=== PATIENT | male | born 1965 | race Caucasian/White ===

== ENCOUNTER 2016-12-29 14:49 | Emergency (ER) | payer OTHER ==
[~2016-12-29] VITALS: Ht 172.7 cm; Wt 90.0 kg
[2016-12-29] MEDS ORDERED: SODIUM CHLORIDE 0.9% 1,000 ML IV ONE (17:40)
[2016-12-29] MEDS ORDERED: LORAZEPAM 1MG TABLET PO ONE (19:15)
[2016-12-29 19:36] VITALS: BP 150/99
== END 2016-12-29 21:23 | disposition home or self-care (01) ==
LOC: ER 15:09
DX: F41.9 Anxiety disorder, unspecified (principal)
CPT/HCPCS: 96360; 99284; J7030; Z7610